=== PATIENT | female | born 1960 | race Caucasian/White ===

== ENCOUNTER 2017-04-05 14:26 | Emergency (ER) | payer SELFPAY ==
[2017-04-05 14:31] VITALS: BP 131/74
--- NOTE | 2017-04-05 18:43 | RAD ---
INDICATION: Wrist pain after a fall the previous day. Patient reports fracture at this same site 30 years earlier. COMPARISON: None. TECHNIQUE: 3 views right wrist. REPORT: On the AP view of the wrist there is a faint sclerotic line seen at the distal radius just below the articulating surface. Otherwise the bones are well-corticated and appropriately aligned. IMPRESSION: No definite radiographically apparent fracture or dislocation. Faint sclerosis at the distal right radius is suspected to be related to the patient's remote fracture. Nevertheless, if the patient's symptoms persist, follow-up imaging is recommended.
--- NOTE | 2017-04-05 18:57 | ED ---
Upper Extremity Pain - HPI Summary HPI Summary: Rt hand dominant pt here w/ fall earlier today and Rt wrist pain. Was attempting to sit down and placed hand on chair rest but slipped and landed on Rt hand/wrist. Has pain w/ movements of wrist and is tender to touch along ventral aspect of wrist. No swelling or bruising. Has not tried anything for pain prior to arrival. Denies numbness, tingling, weakness. H/o fx in this wrist and doesn't quite seem the same (not as bad). No other pain or injuries to report. - History of Current Complaint Chief Complaint: EDExtremityUpper Stated Complaint: RT WRIST INJURY Time Seen by Provider: 04/05/17 15:21 Hx Obtained From: Patient Hx Last Menstrual Period: sporadic - last in May 2013 - Allergies/Home Medications Allergies/Adverse Reactions: Allergies Allergy/AdvReac Type Severity Reaction Status Date / Time No Known Allergies Allergy Verified 04/05/17 14:28 PMH/Surg Hx/FS Hx/Imm Hx Previously Healthy: Yes Endocrine/Hematology History: Denies: Hx Anticoagulant Therapy, Hx Blood Disorders Musculoskeletal History: Reports: Hx Osteoporosis Infectious Disease History: No Infectious Disease History: Denies: History Other Infectious Disease, Traveled Outside the [place] in Last 30 Days - Social History Occupation: Employed Full-time Lives: With Family Alcohol Use: Occasionally Hx Substance Use: No Substance Use Type: Reports: None Hx Tobacco Use: No Smoking Status (MU): Never Smoked Tobacco Review of Systems Musculoskeletal: Other - see HPI Skin: Negative Neurological: Negative Psychological: Normal All Other Systems Reviewed And Are Negative: Yes Physical Exam Triage Information Reviewed: Yes Vital Signs On Initial Exam: Initial Vitals Temp Pulse Resp BP Pulse Ox 98.4 F 68 16 131/74 99 04/05/17 14:28 04/05/17 14:28 04/05/17 14:28 04/05/17 14:28 04/05/17 14:28 Vital Signs Reviewed: Yes Appearance: Positive: Well-Appearing, No Pain Distress, Thin Skin: Positive: Warm, Dry - no erythema, no ecchymosis Head/Face: Positive: Normal Head/Face Inspection Eyes: Positive: EOMI ENT: Positive: Hearing grossly normal Respiratory/Lung Sounds: Positive: Breath Sounds Present Cardiovascular: Positive: Pulses are Symmetrical in both Upper and Lower Extremities Musculoskeletal: Positive: Strength/ROM Intact, Pain @ - mild TTP over ventral Rt wrist Neurological: Positive: Normal, Sensory/Motor Intact, Alert, Oriented to Person Place, Time, CN Intact II-III Psychiatric: Positive: Normal - [place] Coma Scale Coma Scale Total: 15 Diagnostics - Vital Signs Vital Signs Temp Pulse Resp BP Pulse Ox 04/05/17 14:28 98.4 F 68 16 131/74 99 - Laboratory Lab Statement: Any lab studies that have been ordered have been reviewed, and results considered in the medical decision making process. Course/Dx - Course Course Of Treatment: Clinically suspect Rt wrist sprain however w/ tenderness at injury of impact and osteoporosis, will splint and advise repeat XR in 7-10 days. Danger s/sx reviewed w/ pt. - Diagnoses Provider Diagnoses: Right wrist sprain Discharge - Discharge Plan Condition: Stable Disposition: HOME Patient Education Materials: Wrist Sprain (ED), Splint Care (ED) Referrals: [facility] [Outside] Additional Instructions: Your XR does not show fracture or dislocation but given the type of injury, you could have a hidden fracture. You may care for this by wearing a splint until seen by PCP for repeat XR in 7-10 days. Call tomorrow to schedule appointment. If you do not have a PCP, a referral contact line has been provided for you. In the meantime, rest, ice, elevate You may take ibuprofen with food alternating with acetaminophen for pain as needed. You may remove splint to wash hands but replace as soon as done to protect joint. *If you develop numbness, weakness, swelling, return to ED
== END 2017-04-05 19:58 | disposition home or self-care (01) ==
LOC: ED 14:26
DX: S63.501A Unspecified sprain of right wrist, initial encounter (principal); W01.0XXA Fall on same level from slipping, tripping and stumbling without subsequent striking against object, initial encounter; Y92.9 Unspecified place or not applicable

== ENCOUNTER 2019-01-05 07:28 | Emergency (ER) | payer OTHER ==
--- NOTE | 2019-01-05 07:59 | ED ---
HPI Chest Pain - HPI Summary HPI Summary: A 58 y/o female presents to [facility] with a chief complaint of constant right sided chest pain since 01/03/19. She describes this pain as a pressure and also notes that the pain is underneath her right armpit and in her back. Her pain is worsened upon touching, raising arm up, taking a deep breath, and sitting up. She denies any cough. At 18:30 01/04/19 she took two Ibuprofen to no relief. The patient notes that she was on day 50 of doing a "burpee challenge " when her pain began. She rates her pain as an 8/10 when sitting up and a 5/10 when laying down. She denies smoking but admits to occasional EtOH use and caffeine use. She denies a Hx of blood clots, HTN, HLD, DM and denies a FHx of cardiac disease. - History of Current Complaint Chief Complaint: EDChestPainROMI Time Seen by Provider: 01/05/19 07:37 Hx Obtained From: Patient Hx Last Menstrual Period: sporadic - last in May 2013 Onset/Duration: Started Days Ago, Still Present Timing: Constant, Lasting Days Pain Intensity: 8 Pain Scale Used: 0-10 Numeric Chest Pain Location: Diffuse - right sided Chest Pain Radiates: Yes Chest Pain Radiates To:: Back, Other - right armpit Character: Pressure/Squeezing Aggravating Factor(s): Other: - touching, raising arm up, taking a deep breath, and sitting up Alleviating Factor(s): Nothing Associated Signs and Symptoms: Positive: Back Pain. Negative: Fever, Cough - Allergy/Home Medications Allergies/Adverse Reactions: Allergies Allergy/AdvReac Type Severity Reaction Status Date / Time No Known Allergies Allergy Verified 01/05/19 07:32 PMH/Surg Hx/FS Hx/Imm Hx Endocrine/Hematology History: Denies: Hx Anticoagulant Therapy, Hx Blood Disorders, Hx Diabetes Cardiovascular History: Denies: Hx Hypercholesterolemia, Hx Hypertension Musculoskeletal History: Reports: Hx Osteoporosis Infectious Disease History: No Infectious Disease History: Denies: History Other Infectious Disease, Traveled Outside the [place] in Last 30 Days - Family History Known Family History: Negative: Cardiac Disease - Social History Alcohol Use: Occasionally Hx Substance Use: No Substance Use Type: Reports: None Hx Tobacco Use: No Smoking Status (MU): Never Smoked Tobacco Review of Systems Negative: Fever Positive: Chest Pain Negative: Cough Positive: Myalgia - back pain All Other Systems Reviewed And Are Negative: Yes Physical Exam - Summary Physical Exam Summary: GENERAL: Patient is a well-developed and nourished F who is lying comfortable in the stretcher. Patient is not in any acute respiratory distress. HEAD AND FACE: Normocephalic EYES: PERRLA, EOMI x 2. EARS: Hearing grossly intact. MOUTH: Oropharynx within normal limits. NECK: Supple, trachea is midline, no adenopathy, no JVD, no carotid bruit. CHEST: Symmetric, TTP right anterior chest LUNGS: Clear to auscultation bilaterally. No wheezing or crackles. CVS: Regular rate and rhythm, S1 and S2 present, no murmurs or gallops appreciated. ABDOMEN: Soft, non-tender. Bowel sounds are normal. No abnormal abdominal pulsations. EXTREMITIES: TTP upper back on right. Full ROM in all major joints, no edema, no cyanosis or clubbing. NEURO: Alert and oriented x 3. No acute neurological deficits. Speech is normal and follows commands. SKIN: Dry and warm Triage Information Reviewed: Yes Vital Signs On Initial Exam: Initial Vitals Temp Pulse Resp BP Pulse Ox 98.1 F 72 16 133/85 99 01/05/19 07:29 01/05/19 07:29 01/05/19 07:29 01/05/19 07:29 01/05/19 07:29 Vital Signs Reviewed: Yes Diagnostics - Vital Signs Vital Signs Temp Pulse Resp BP Pulse Ox 01/05/19 07:29 98.1 F 72 16 133/85 99 - Laboratory Result Diagrams: 01/05/19 07:44 01/05/19 07:44 Lab Statement: Any lab studies that have been ordered have been reviewed, and results considered in the medical decision making process. - Radiology CXR Radiology Interpretation Completed By: Radiologist Summary of Radiographic Findings: Stigmata of probable obstructive lung disease. Correlate with clinical assessment. No. acute pulmonary or cardiac process evident. ED physician has reviewed this imaging report. - CT Chest/thorax CTA CT Interpretation Completed By: Radiologist Summary of CT Findings: Negative for pulmonary embolism. Small pericardial effusion. ED physician has reviewed this imaging report. - EKG 07:37 Cardiac Rate: NL - 64 bpm EKG Rhythm: Sinus Rhythm Summary of EKG Findings: NSR at 64 bpm, nml axis, no ischemic changes. Re-Evaluation - Re-Evaluation First Eval Re-Evaluation Time: 09:06 Change: Unchanged Comment: Discussed lab results and plan for CT. Second Eval Re-Evaluation Time: 11:37 Change: Unchanged Comment: Discussed results and plan for Echo. Third Eval Re-Evaluation Time: 12:04 Change: Unchanged Comment: Discussed results and plan for DC and follow up with [facility]. Chest Pain Course/Dx - Course Course Of Treatment: A 58 y/o female presents to [facility] with a chief complaint of constant right sided chest pain since 01/03/19. The physical exam revealed that the patient was TTP right anterior chest and upper back on right. EKG at 07 :37 showed NSR at 64 bpm, nml axis, no ischemic changes. CXR impression: Stigmata of probable obstructive lung disease. Correlate with clinical assessment. No. acute pulmonary or cardiac process evident. Bloodwork, chemistries and urines obtained. D-Dimer 303 and BUN/Creatinine Ratio 27.3 at 07 :44. Chest/thorax CTA impression: Negative for pulmonary embolism. Small pericardial effusion. Discussed results with Dr. Snyder, hospitalist. Since an Echo could not be ordered today, we agreed that the patient should follow up with [facility] tomorrow for possibly an Echo. The patient will be discharged and follow up with [facility] tomorrow. I discussed results with patient, and she reports feeling better. She is hemodynamically stable and safe for discharge. Strict return precautions given and she will otherwise follow up with her PCP. - Diagnoses Provider Diagnoses: Chest pain, Pericardial effusion - Provider Notifications Discussed Care Of Patient With: Tea Snyder Time Discussed With Above Provider: 11:30 Instructed by Provider To: Other - recommended Echo and if it shows just a small pericardial effusion the patient can go home and follow up with cardiology. Discharge - Sign-Out/Discharge Documenting (check all that apply): Patient Departure - DC Patient Received Moderate/Deep Sedation with Procedure: No - Discharge Plan Condition: Stable Disposition: HOME Patient Education Materials: Chest Pain (DC), Pericardial Effusion (ED) Referrals: [facility] [Outside] - 1 Day Additional Instructions: Follow up with [facility]. Follow up with your primary care physician in 1-3 days. RETURN TO THE EMERGENCY DEPARTMENT FOR CHANGING OR WORSENING SYMPTOMS. - Billing Disposition and Condition Condition: STABLE Disposition: Home - Attestation Statements Document Initiated by Scribe: Yes Documenting Scribe: Eladio Freeman Provider For Whom Yangibe is Documenting (Include Credential): Scott Keith MD Scribe Attestation: I, Eladio Freeman, scribed for Scott Keith MD on 01/05/19 at 1804. Scribe Documentation Reviewed: Yes Provider Attestation: The documentation as recorded by the Eladio perdue accurately reflects the service I personally performed and the decisions made by me, Willian Keith MD Status of Scribe Document: Viewed Consult Consult: At 11:[address] Snyder that Dr. Keith is unable to schedule an Echo. We agreed that the patient should follow up with [facility] tomorrow for possibly an Echo.
[2019-01-05 08:07] LABS: ABS Eosinophils 0.1 10^3/ul (0-0.6); ABS Lymphocytes 1.3 10^3/ul (1.0-4.8); ABS Monocytes 0.6 10^3/ul (0-0.8); ABS Neutrophils 2.4 10^3/ul (1.5-7.7); Eosinophil % 1.8 %; Hematocrit 40 % (35-47); Hemoglobin 13.8 g/dL (12.0-16.0); Lymphocyte % 29.1 %; Mean Corpuscular HGB Conc 34 g/dL (31-36); Mean Corpuscular Hemoglobin 31 pg (27-31); Mean Corpuscular Volume 91 fL (80-97); Mean Platelet Volume 7.9 fL (7.4-10.4); Nucleated Red Blood Cells % 0.1; Platelet Count 190 10^3/uL (150-450); Red Cell Distribution Width 13 % (10-15); White Blood Count 4.5 10^3/uL (3.5-10.8)
[2019-01-05 08:12] LABS: INR 1.03 (0.82-1.09)
[2019-01-05 08:14] LABS: Albumin 4.5 g/dL (3.2-5.2); Albumin/Globulin Ratio 1.7 (1-3); BUN/Creatinine Ratio 27.3 (8-20); Calcium 9.6 mg/dL (8.6-10.3); EGFR African American 111.7 (>60); EGFR Non-African American 92.3 (>60); Globulin 2.6 g/dL (2-4); Potassium 3.7 mmol/L (3.5-5.0); Total Bilirubin 0.8 mg/dL (0.2-1.0); Total Protein 7.1 g/dL (6.4-8.9)
[2019-01-05 08:23] LABS: C Reactive Protein 2.59 mg/L (<8.01)
[2019-01-05] MEDS ORDERED: NS 0.9% 1000 ML** 1,000 ML IV ONE (08:39)
[2019-01-05] MEDS ORDERED: Iohexol 350* (CONTRAST) 500 ML MDV IV ONE (08:58)
[2019-01-05 09:53] LABS: Urine Appearance Clear; Urine Bilirubin Negative (Negative); Urine Blood Negative (Negative); Urine Color Straw; Urine Glucose Negative (Negative); Urine Ketones Negative (Negative); Urine Nitrite Negative (Negative); Urine Protein Negative (Negative); Urine Specific Gravity 1.003 (1.010-1.030); Urine Urobilinogen Negative (Negative)
[2019-01-05 12:09] VITALS: BP 129/75
== END 2019-01-05 12:16 | disposition home or self-care (01) ==
LOC: ED 07:28
DX: R07.89 Other chest pain (principal); I31.3 Pericardial effusion (noninflammatory)
CPT/HCPCS: 36415; 71046; 71275; 80053; 81003; 84484; 85025; 85379; 85610; 86140; 93005; 96360; 96361; 99282; Q9967

== ENCOUNTER 2019-04-14 10:10 | Emergency (ER) | payer OTHER ==
[2019-04-14 13:03] VITALS: BP 130/88
--- NOTE | 2019-04-14 16:29 | ED ---
Upper Extremity Pain - HPI Summary HPI Summary: This patient is an otherwise healthy 59-year-old female presenting to the ED after a fall. 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 She states this was at work. She denies any numbness or tingling. She denies any color or temperature changes. There is obvious deformity to the radial side of the wrist. Pulses +2 intact bilaterally. Patient able to move fingers and thumb, however with some discomfort. She does endorse a history of carpal tunnel syndrome. She did not take any medications prior to arrival and she states her pain currently is a 2/10 and manageable. Ice is given on arrival. - History of Current Complaint Chief Complaint: EDExtremityUpper Stated Complaint: LEFT WRIST INJ PER PT Time Seen by Provider: 04/14/19 11:03 Hx Obtained From: Patient Hx Last Menstrual Period: sporadic - last in May 2013 Mechanism Of Injury: Fall From Height Of: Onset/Duration: Started Hours Ago Timing: Constant Severity Initially: Mild Severity Currently: Mild Character: Aching Aggravating Factor(s): Movement, Lifting, Flexion, Extension Alleviating Factor(s): Rest, Ice Associated Signs & Symptoms: Positive: Swelling. Negative: Redness, Bruising Related History: Dominant Hand Right - Risk Factors Non-Orthopedic Risk Factor: Negative DVT Risk Factors: Negative Septic Arthritis Risk Factor: Negative Compartment Syndrome Risk Factors: Pain - Allergies/Home Medications Allergies/Adverse Reactions: Allergies Allergy/AdvReac Type Severity Reaction Status Date / Time No Known Allergies Allergy Verified 04/14/19 10:18 PMH/Surg Hx/FS Hx/Imm Hx Previously Healthy: Yes Endocrine/Hematology History: Denies: Hx Anticoagulant Therapy, Hx Blood Disorders, Hx Diabetes Cardiovascular History: Denies: Hx Hypercholesterolemia, Hx Hypertension Musculoskeletal History: Reports: Hx Osteoporosis - Immunization History Hx Pertussis Vaccination: No Immunizations Up to Date: Yes Infectious Disease History: No Infectious Disease History: Denies: History Other Infectious Disease, Traveled Outside the [place] in Last 30 Days - Family History Known Family History: Negative: Cardiac Disease - Social History Occupation: Employed Full-time Lives: With Family Alcohol Use: Occasionally Hx Substance Use: No Substance Use Type: Reports: None Hx Tobacco Use: No Smoking Status (MU): Never Smoked Tobacco Review of Systems Negative: Fever, Chills, Fatigue, Skin Diaphoresis Negative: Palpitations, Chest Pain Negative: Shortness Of Breath, Cough Genitourinary: Negative Positive: no symptoms reported, see HPI Positive: Arthralgia - left wrist pain and deformity without ecchymosis. Negative: Myalgia Negative: Rash Neurological: Negative All Other Systems Reviewed And Are Negative: Yes Physical Exam Triage Information Reviewed: Yes Vital Signs On Initial Exam: Initial Vitals Temp Pulse Resp BP Pulse Ox 98.5 F 80 14 140/95 99 04/14/19 10:13 04/14/19 10:13 04/14/19 10:13 04/14/19 10:13 04/14/19 10:13 Vital Signs Reviewed: Yes Appearance: Positive: Well-Appearing, Well-Nourished Skin: Positive: Skin Color Reflects Adequate Perfusion Head/Face: Positive: Temporal Artery Tenderness Eyes: Positive: EOMI, NICOLE, Conjunctiva Clear Neck: Positive: Supple, No Lymphadenopathy Respiratory/Lung Sounds: Positive: Clear to Auscultation, Breath Sounds Present Cardiovascular: Positive: RRR, Pulses are Symmetrical in both Upper and Lower Extremities Musculoskeletal: Positive: Pain @ - left wrist pain, limited ROM flexion and extension. thumb opposition intact Neurological: Positive: Speech Normal Psychiatric: Positive: Affect/Mood Appropriate Diagnostics - Vital Signs Vital Signs Temp Pulse Resp BP Pulse Ox 04/14/19 13:02 98.4 F 71 18 130/88 98 04/14/19 10:13 98.5 F 80 14 140/95 99 - Laboratory Lab Statement: Any lab studies that have been ordered have been reviewed, and results considered in the medical decision making process. Course/Dx - Course Course Of Treatment: This patient is evaluated for a left wrist injury. Left x- rays were obtained on arrival which show:IMPRESSION: SLIGHTLY ANGULATED FRACTURE OF THE DISTAL RADIAL METAPHYSIS. Patient denies any discomfort at rest , however a 5/10 discomfort with movement. There is a noticeable deformity to the radial portion of the right wrist without deformity otherwise. No ecchymosis or temperature changes to the forearm or hand. Denies any pain to the fingertips or to the elbow. Good range of motion to the shoulder and to the elbow. Range of motion is limited with flexion and extension of the left wrist. A volar splint was placed. NV intact pre-and post fabricated splint. Patient will follow-up with orthopedics. - Diagnoses Differential Diagnosis/HQI/PQRI: Positive: Fracture (Closed), Strain, Sprain Provider Diagnoses: Radial fracture Discharge ED - Sign-Out/Discharge Documenting (check all that apply): Patient Departure Patient Received Moderate/Deep Sedation with Procedure: No - Discharge Plan Condition: Stable Disposition: HOME Patient Education Materials: Wrist Fracture in Adults (ED) Referrals: Leslie Mark MD [Primary Care Provider] - Miguel Patel MD [Medical Doctor] - Additional Instructions: Please follow up with Dr. Patel as soon as possible Keep the splint spplied Sling as needed Do not get wet Ibuprofen 600mg three times daily as needed for pain - Billing Disposition and Condition Condition: STABLE Disposition: Home
== END 2019-04-14 13:00 | disposition home or self-care (01) ==
LOC: ED 10:10
DX: S52.502A Unspecified fracture of the lower end of left radius, initial encounter for closed fracture (principal); W19.XXXA Unspecified fall, initial encounter; Y93.6A Activity, physical games generally associated with school recess, summer camp and children; Y92.218 Other school as the place of occurrence of the external cause; Y99.0 Civilian activity done for income or pay; M18.9 Osteoarthritis of first carpometacarpal joint, unspecified
CPT/HCPCS: 99282